=== PATIENT | female | born 1960 | race Caucasian/White ===

== ENCOUNTER 2016-11-12 15:37 | Emergency (ER) | payer OTHER ==
[~2016-11-12] VITALS: Ht 157.5 cm; Wt 61.2 kg
[2016-11-12 19:01] VITALS: BP 158/95
== END 2016-11-12 19:34 | disposition home or self-care (01) ==
LOC: ER 15:40
DX: G89.29 Other chronic pain (principal); M54.5 Low back pain; Z76.0 Encounter for issue of repeat prescription; Z88.6 Allergy status to analgesic agent; Z88.0 Allergy status to penicillin; Z91.040 Latex allergy status